=== PATIENT | female | born 1990 | race Caucasian/White ===

== ENCOUNTER 2021-10-08 10:17 | Emergency (ER) | payer OTHER ==
[~2021-10-08] VITALS: Ht 160 cm; Wt 56.7 kg
[2021-10-08] MEDS ORDERED: HEPARIN 101 UNIT/1 M (10:28)
== END 2021-10-08 14:13 | disposition home or self-care (01) ==
LOC: ER 10:17
DX: O20.9 Hemorrhage in early pregnancy, unspecified (principal); Z3A.00 Weeks of gestation of pregnancy not specified; Z37.0 Single live birth